=== PATIENT | male | born 1985 | race Caucasian/White ===

== ENCOUNTER 2023-07-08 08:37 | Outpatient (CLI) | payer BC, SELFPAY ==
--- NOTE | 2023-07-19 13:49 | WPDHOMESLEEP ---
Sleep Study - Home Unattended Date of Study: 07/08/23 Ordering Provider: Chitra Aguilera NP Interpreting Provider: Cecilia Penny DO Home Sleep Study Type: Watch PAT Height: 1.85 m Weight: 120.202 kg Body Mass Index: 34.9 Neck Circumference (inches): 18 [place]: 8 Reason for Sleep Study Snoring, hypersomnia Sleep History The patient is a 37-year-old male with anxiety, ADHD, gout, hyperlipidemia, hypertension, polycythemia, tobacco use and obesity that had a sleep study ordered by his primary care for evaluation of sleep apnea. The sleep questionnaire was unavailable. [facility] Past Medical History Medical History ADHD Anxiety Gout Hyperlipidemia Hypersomnia Hypertension Polycythemia Snoring Tobacco abuse Family History Family History Father Hypertension Mother Diabetes mellitus Hypertension Grandparent Depression Heart disease Social History Social History Smoking packs per day: 0.25 Smoking cigarettes per day: 5.0 Years smoked: 20 Smoking pack-years: 5.00 Smoking status: Current every day smoker Tobacco type: cigarettes Alcohol intake: current Substance use: current Substance use type: marijuana Medications Home Medications Medication Instructions Recorded Confirmed Type atorvastatin 40 mg tablet 40 mg PO DAILY #90 tabs 05/18/23 06/21/23 Rx bupropion HCl 150 mg 24 hr tablet, 150 mg PO QAM #90 tabs 05/18/23 06/21/23 Rx extended release (Wellbutrin XL) dextroamphetamine-amphetamine 20 20 mg PO BID 05/18/23 06/21/23 History mg tablet (Adderall) indomethacin 50 mg capsule 50 mg PO TID PRN 05/18/23 06/21/23 History lisinopril 20 1 tablet PO DAILY #90 tabs 05/18/23 06/21/23 Rx mg-hydrochlorothiazide 25 mg tablet metoprolol succinate 200 mg 200 mg PO DAILY #90 tabs 05/18/23 06/21/23 Rx tablet,extended release 24 hr amlodipine 5 mg tablet 10 mg PO DAILY #90 tabs 06/21/23 06/21/23 Rx febuxostat 40 mg tablet (Uloric) 40 mg PO DAILY #30 tabs 06/21/23 06/21/23 Rx Sleep Procedure The sleep study was completed using famPlusT a technically adequate device with seven channels: peripheral arterial tone, actigraphy, body position, snore, respiratory movement, pulse oximetry, sleep staging, and heart rate. Prior to using the device, the patient received verbal and written instructions for its application and was provided with the help desk phone number for additional telephonic instruction with 24-hour availability of qualified personnel to answer questions.? The study was scored using CMS guidelines. Sleep Architecture The total recording time is 7 hrs, 39 min. The total sleep time is 6 hrs, 5 min. Sleep latency is 5 minutes. REM latency is 83 minutes. The patient had 26 episodes of waking. Sleep architecture shows 19.6% deep sleep, 51.3% light sleep, and (as % Total Sleep Time) showed NREM (Light 51.3%; Deep 19.6%), and a 29.1% stage REM. The patient spent 7.0% of total sleep time in the supine position. Sleep efficiency was 79.52%. Respiratory Analysis The overall AHI (pAHI 4%:) is 18.5. The central AHI is 3.1. The AHI was 14.0 in NREM and 28.9 in REM sleep. The AHI was 33.1 in Supine and 17.4 in Non-supine sleep. Percent of [place] respirations is 0.0. Oximetry Data The oxygen desaturation index (BASIL 4%:) is 17.8. The mean saturation is 94%, and the lowest saturation is 88%. Time spent with saturation < 88% is 0.1 minutes. Snoring Profile Snoring average intensity is 46 dB. The patient snored above 45 decibels for 156.4 minutes, 42.8% of sleep time. Cardiac Profile The average pulse rate is 47 beats per minutes. The lowest pulse rate is 26 bpm. The highest pulse rate reported is 88 bpm. Suspected Afib total duration is 0:00:49, (h:m:sec). The longest Afibevent duration is 0:00:49. Premature beats o
[2023-07-19 13:50] VITALS: BMI 34.9
== END 2023-07-12 15:16 | disposition home or self-care (01) ==
PROVIDERS: PCP Nurse Practitioner Family; Visit Provider Nurse Practitioner Family
DX: G47.33 Obstructive sleep apnea (adult) (pediatric) (principal); G47.10 Hypersomnia, unspecified; R06.83 Snoring; Z68.33 Body mass index [BMI] 33.0-33.9, adult
CPT/HCPCS: 95800